=== PATIENT | male | born 1985 | race Caucasian/White ===

== ENCOUNTER 2017-03-26 15:59 | Emergency (ER) | payer SELFPAY, OTHER ==
[2017-03-26] MEDS: TRIMETHOPRIM/SULFAMETHOX (DS) TAB PO (17:52)
[2017-03-26] MEDS: CEPHALEXIN 500 MG CAP PO (17:52)
[2017-03-26] MEDS: predniSONE 20 MG TAB PO (17:53)
== END 2017-03-26 18:00 | disposition home or self-care (01) ==
LOC: FTE 15:59
DX: L02.31 Cutaneous abscess of buttock (principal); L03.317 Cellulitis of buttock
CPT/HCPCS: 99284

== ENCOUNTER 2017-04-01 17:24 | Emergency (ER) | payer OTHER ==
[2017-04-01] MEDS: morphine 4 MG/ML VIAL IV (18:31)
[2017-04-01] MEDS: CLINDAMYCIN 900 MG/D5W (PMX) 50 ML IVPB (18:31)
[2017-04-01] MEDS: CLINDAMYCIN 900 MG INJ IV (18:31)
[2017-04-01] MEDS: metroNIDAZOLE 500 MG/NS (PMX) 100 ML IVPB (18:55)
== END 2017-04-01 19:54 | disposition home or self-care (01) ==
LOC: FTE 17:24
DX: L03.317 Cellulitis of buttock (principal)
CPT/HCPCS: 96374; 96375; 99284-25